=== PATIENT | male | born 1970 | race Caucasian/White ===

== ENCOUNTER 2016-11-03 01:29 | Emergency (ER) | payer BC ==
[~2016-11-03] VITALS: Ht 175.3 cm; Wt 77.3 kg
[~2016-11-03 01:29] MED LIST: DEXILANT60 MG PO; NEXIUM24HROTC PO
[2016-11-03 01:32] VITALS: TEMP 98.5
[2016-11-03] MEDS ORDERED: NORCO 325 MG-51 TAB PO (02:32)
[2016-11-03 03:05] VITALS: BP 150/79; PULSE 67
== END 2016-11-03 03:08 | disposition home or self-care (01) ==
LOC: COL.ER 01:29
DX: S43.101A Unspecified dislocation of right acromioclavicular joint, initial encounter (principal); W18.30XA Fall on same level, unspecified, initial encounter; Y92.009 Unspecified place in unspecified non-institutional (private) residence as the place of occurrence of the external cause

== ENCOUNTER → 2019-09-23 | Outpatient (CLI) | payer BC ==
[~2019-09-23] MED LIST changes: +NORCO 325 MG-51 TAB PO
== END ==
LOC: COL.VAS 09:15
DX: Z13.6 Encounter for screening for cardiovascular disorders (principal); M79.89 Other specified soft tissue disorders; M79.661 Pain in right lower leg

== ENCOUNTER 2020-09-16 06:27 | Day surgery (SDC) | payer BC ==
[~2020-09-16] VITALS: Ht 176.5 cm; Wt 85.9 kg
[2020-09-16 06:36] VITALS: BP 113/95; PULSE 65; TEMP 98
[2020-09-16] MEDS ORDERED: NEXIUM 24HR20 M1 PO (06:41)
[2020-09-16] MEDS ORDERED: DOXYCYCLINE 10100 MG PO (06:41)
[2020-09-16 08:05] VITALS: BP 111/75; PULSE 79
--- NOTE | 2020-09-16 08:05 | NUR ---
Pt to [facility] 2 via cart from ENDO. Pt drowsy, but awake. Pt denies pain or nausea. Pt ambulates to recliner with stand by assistance. Warm blanket provided. VSS. Water and coffee given per pt request. Will continue to monitor. Call light within reach.
[2020-09-16 08:20] VITALS: BP 130/88; PULSE 73
--- NOTE | 2020-09-16 08:20 | NUR ---
Pt tolerating food and fluids without difficulties. Pt denies needs. Call light within reach.
[2020-09-16 08:35] VITALS: BP 123/87; PULSE 64
--- NOTE | 2020-09-16 08:35 | NUR ---
IV site discontinued with all parts intact. Pt up to dress. Will continue to monitor.
--- NOTE | 2020-09-16 08:50 | NUR ---
into consult with pt at this time.
--- NOTE | 2020-09-16 09:00 | NUR ---
Discharge instructions reviewed. Pt voices understanding.
--- NOTE | 2020-09-16 09:10 | NUR ---
Pt escorted to private car via wheel chair. Pt accompanied home by his father.
== END 2020-09-16 09:10 | disposition home or self-care (01) ==
LOC: SDCO 06:27
DX: K29.30 Chronic superficial gastritis without bleeding (principal); K21.9 Gastro-esophageal reflux disease without esophagitis; K59.00 Constipation, unspecified; R19.7 Diarrhea, unspecified; M19.90 Unspecified osteoarthritis, unspecified site; K62.5 Hemorrhage of anus and rectum; E23.0 Hypopituitarism; L73.9 Follicular disorder, unspecified; R19.5 Other fecal abnormalities; K57.30 Diverticulosis of large intestine without perforation or abscess without bleeding; K64.0 First degree hemorrhoids; Z90.89 Acquired absence of other organs; Z20.822 Contact with and (suspected) exposure to COVID-19; Z79.899 Other long term (current) drug therapy; Z87.891 Personal history of nicotine dependence
CPT/HCPCS: J2704; J7120